=== PATIENT | male | born 1965 | race Caucasian/White ===

== ENCOUNTER 2020-10-26 16:28 | Emergency (ER) | payer MEDICARE, MEDICAID, SELFPAY ==
[2020-10-26 16:42] VITALS: BP 140/91; PULSE 100; RESP 19; TEMP 36.1; O2SAT 100
--- NOTE | 2020-10-26 16:54 | PC.NURSE ---
Patient unable to answer [place] suicide psych screening. Patient answers I don't know, I don't know, I don't know to all questions. Per the patient, he is currently under the influence of meth and other unknown drugs .
--- NOTE | 2020-10-26 16:58 | PC.NURSE ---
This RN went into room 15 to evaluate patient. Pt states I dont want to be in this room im claustrophobic I said Im anusha fulton, this is the room we have he states well im leaving then Pt began walking towards the ambulance bay. I said can i just talk to you for a minute Pt continued walking to the ambulance bay doors
== END 2020-10-26 16:58 | disposition left against medical advice (07) ==
DX: F22 Delusional disorders (principal)
CPT/HCPCS: 99199

== ENCOUNTER 2021-02-17 11:29 | Emergency (ER) | payer MEDICARE, MEDICAID, SELFPAY ==
[2021-02-17 11:33] VITALS: BP 169/82; PULSE 100; RESP 18; TEMP 36.1; O2SAT 98
--- NOTE | 2021-02-17 11:47 | PC.NURSE ---
Instructed pt that we cannot accommodate a dog in the ER. He must find someone to pick the dog up. The dog was growling at one staff member and nipped at another staff member. Pt left the ER with dog in tow.
== END 2021-02-17 11:30 | disposition left against medical advice (07) ==
LOC: ANHED 12:02
DX: R68.89 Other general symptoms and signs (principal)
CPT/HCPCS: 99199